=== PATIENT | male | born 1955 | race Asian ===

== ENCOUNTER 2017-01-14 16:03 | Emergency (ER) | payer OTHER ==
[~2017-01-14] VITALS: Wt 72.7 kg
[~2017-01-14 16:03] MED LIST: ALLO100T PO; CITA10TA72 PO; CLIN-73 PO; FERR-55 PO; INDO25CA25 PO; OLAN2.5T4 PO; OMEP20CA16 PO
[2017-01-14] MEDS ORDERED: ACET325T33 PO (16:39)
--- NOTE | 2017-01-14 16:43 | ERA ---
ER Documentation Chief Complaint Date/Time DATE: 01/14/17 TIME: 16:40 Chief Complaint melony hand pain HPI This is a 61-year-old male with a chief complaints of left wrist swelling 1-2 weeks. Patient has a history of schizophrenia and diabetes mellitus. Patient states that he is taking Zyprexa and has been compliant with his diabetic medications. Patient has no other complaints. Denies any pain, fevers, decreased range of motion, numbness or tingling or development of contractures. Is homeless. ROS All systems reviewed and are negative except as per history of present illness. Medications Home Meds Active Scripts Acetaminophen* (Tylenol*) 325 Mg Tablet, 1 TAB PO Q8 Y for PAIN AND OR ELEVATED TEMP, #20 TAB Prov:MIRI BLACK PA-C 01/14/17 Clindamycin Hcl* (Clindamycin Hcl*) 300 Mg Cap, 300 MG PO Q8, #30 Prov:HOLLY ROSADO 03/31/15 Reported Medications Allopurinol* (Allopurinol*) 100 Mg Tablet, 100 MG PO BID, TAB 03/22/15 Ferrous Sulfate* (Ferrous Sulfate*) 325 Mg Tablet, 325 MG PO TID, TAB 03/22/15 Citalopram Hydrobromide* (Celexa*) 10 Mg Tablet, 10 MG PO DAILY, TAB 03/22/15 Olanzapine* (Zyprexa*) 2.5 Mg Tablet, 2.5 MG PO DAILY, TAB 03/22/15 Omeprazole* (Omeprazole*) 20 Mg Capsule.dr, 20 MG PO BID, CAP 03/22/15 Indomethacin* (Indocin*) 25 Mg Capsule, 25 MG PO TID, CAP 03/22/15 Allergies Allergies: Coded Allergies: vancomycin (Verified Allergy, Mild, Itchiness, 04/16/15) diphenhydramine (Verified Allergy, Unknown, 04/08/15) PMhx/Soc History of Surgery: Yes (L THR x2, 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 KING, schizophrenia, radial nerve palsy, chronic pain, anemia) Hx Alcohol Use: Yes Hx Substance Use: No Hx Tobacco Use: Yes Physical Exam Vitals Vital Signs Date Time Temp Pulse Resp B/P Pulse Ox O2 Delivery O2 Flow Rate FiO2 01/14/17 16:07 99.4 89 20 114/56 99 Physical Exam Const: 61-year-old male in a wheelchair presentation Head: Atraumatic Eyes: Normal Conjunctiva ENT: Normal External Ears, Nose and Mouth. Neck: Full range of motion..~ No meningismus. Resp: Clear to auscultation bilaterally Cardio: Regular rate and rhythm, no murmurs Abd: Soft, non tender, non distended. Normal bowel sounds Skin: No petechiae or rashes Back: No midline or flank tenderness Ext: No cyanosis, or edema Neur: Awake and alert Psych: Normal Mood and Affect Procedures/MDM 61-year-old male presenting with signs and symptoms consistent with ganglion cyst. At this time I have little suspicion for any acute pathology or infectious involvement. No contractures, no pain, neurovascularly intact and no indications at this time for surgical intervention. Has been advised to follow-up with PCP which she has verbally acknowledged and agreed to. Patient will be discharged at this time with discharge instructions return precautions for Departure Diagnosis: Primary Impression: Ganglion cyst Condition: Stable Patient Instructions: Ganglion Cyst: Hand [facility] Usted se dixon hecho un examen mdico de control que le indica que no est en lev condicin que requiera tratamiento urgente en el Departamento de Emergencia. Un estudio ms profundo y el tratamiento de fulton condicin pueden esperar sin ningn riesgo hasta que usted sea atendida/o en el consultorio de fulton mdico o lev cl toy. Es responsabilidad suya arreglar lev julienne para el seguimiento del val. MANEJO DE CONDICIONES NO URGENTES EN EL FUTURO 1) Si usted tiene un mdico de atencin primaria: Usted debera llamar a fulton mdico de atencin primaria antes de venir al departamento de emergencia. Despus de las horas de consultorio, fulton doctor o fulton asociado/a est disponible por telfono. El mdico o enfermero de citlaly en el servicio telefnico puede asesorarle por aylin medio para atender el problema, o val contrario se puede programar lev julienne. 2) Si usted no tiene un mdico de atencin primaria: Llame al mdico o clnica de referencia que aparece abajo isis las horas de consultorio para hacer lev julienne para que le vean. CLINICAS: [place] [id number] [phone] [place] [id number] [phone] [place] [address] [phone] [place] [address] [phone] [place] [address] [phone] [facility]. [phone] [address] [facility] [facility] YOU HAVE RECEIVED A MEDICAL SCREENING EXAM AND THE RESULTS INDICATE THAT YOU DO NOT HAVE A CONDITION THAT REQUIRES URGENT TREATMENT IN THE EMERGENCY DEPARTMENT. FURTHER EVALUATION AND TREATMENT OF YOUR CONDITION CAN WAIT UNTIL YOU ARE SEEN IN YOUR DOCTORS OFFICE WITHIN THE NEXT 1-2 DAYS. IT IS YOUR RESPONSIBILITY TO MAKE AN APPOINTMENT FOR FOLOW-UP CARE. IF YOU HAVE A PRIMARY DOCTOR --you should call your primary doctor and schedule an appointment IF YOU DO NOT HAVE A PRIMARY DOCTOR YOU CAN CALL OUR PHYSICIAN REFERRAL HOTLINE AT IF YOU CAN NOT AFFORD TO SEE A PHYSICIAN YOU CAN CHOSE FROM THE FOLLOWING [facility] [phone] [facility] [phone]) [phone] [facility] [phone] [facility] [address] [facility] [phone] [facility]. [facility]. [phone] [facility] [facility] YOU HAVE RECEIVED A MEDICAL SCREENING EXAM AND THE RESULTS INDICATE THAT YOU DO NOT HAVE A CONDITION THAT REQUIRES URGENT TREATMENT IN THE EMERGENCY DEPARTMENT. FURTHER EVALUATION AND TREATMENT OF YOUR CONDITION CAN WAIT UNTIL YOU ARE SEEN IN YOUR DOCTORS OFFICE WITHIN THE NEXT 1-2 DAYS. IT IS YOUR RESPONSIBILITY TO MAKE AN APPOINTMENT FOR FOLOW-UP CARE. IF YOU HAVE A PRIMARY DOCTOR --you should call your primary doctor and schedule and appointment IF YOU DO NOT HAVE A PRIMARY DOCTOR YOU CAN CALL OUR PHYSICIAN REFERRAL HOTLINE AT . IF YOU CAN NOT AFFORD TO SEE A PHYSICIAN YOU CAN CHOSE FROM THE FOLLOWING [facility] INSTITUTIONS: [facility] [address] [place] [address] [facility] [address] [place] [address] [facility] [address] [place] [address] Additional Instructions: Follow up with your PCP within the next 1-3 days for a more thorough evaluation and a possible referral to a specialist. Return the the emergency department immediately if symptoms worsen or change. If you have any questions regarding medications, ask your pharmacist or us before you leave. If any adverse reactions occur while taking your medications, discontinue the treatment and return to the emergency department immediately. Take your medications as directed, and complete the entire course of treatment. MIRI BLACK PA-C Jan 14, 2017 16:43
== END 2017-01-14 16:45 | disposition home or self-care (01) ==
LOC: FTE 16:03
DX: M67.442 Ganglion, left hand (principal); I10 Essential (primary) hypertension; Z87.891 Personal history of nicotine dependence
CPT/HCPCS: 99283